=== PATIENT | male | born 1970 | race Caucasian/White ===

== ENCOUNTER 2018-08-05 12:39 | Emergency (ER) | payer OTHER ==
[2018-08-05 12:47] VITALS: BP 120/80; PULSE 74; RESP 15; TEMP 98.5; O2SAT 98
[2018-08-05] MEDS ORDERED: Tdap Vaccine 0.5 ml Vial (10-64 yrs) IM ONE ×2 (13:12→13:39)
--- NOTE | 2018-08-05 13:39 | ED PDOC ---
Upper Extremity Pain/Injury Time Seen by Provider: 08/05/18 12:48 Chief Complaint (Nursing): Finger,Hand,&Wrist Chief Complaint (Provider): Left Thumb Injury History Per: Patient, Medical File Clerk (his coworker at bedside is patient's preferred method of translation for irish) History/Exam Limitations: no limitations Onset/Duration Of Symptoms: Hrs (x1) Additional Complaint(s): 47 year old male presents to the ED with coworker for evaluation of a left thumb injury. 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 20 pounds) fell onto his left thumb. Patient reports he initially cleaned the wound with "a spray" and put on a band-aid. Patient presents for wound evaluation. Otherwise, denies numbness, tingling, loss of sensation, or taking any medicines prior to arrival. No other complaints. Patient reports mild localized pain. Tetanus not up to date Right hand dominant PMD: none provided Past Medical History Reviewed: Historical Data, Nursing Documentation, Vital Signs Vital Signs: Last Vital Signs Temp 98.5 F 08/05/18 12:46 Pulse 74 08/05/18 12:46 Resp 15 08/05/18 12:46 BP 120/80 08/05/18 12:46 Pulse Ox 98 08/05/18 12:46 - Medical History PMH: No Chronic Diseases - Surgical History Surgical History: No Surg Hx - Family History Family History: States: Unknown Family Hx - Social History Current smoker - smoking cessation education provided: No Alcohol: None Drugs: Denies - Home Medications Home Medications: Ambulatory Orders Medication Instructions Recorded DiphenhydrAMINE [Benadryl] 25 mg PO Q4H #20 cap 10/13/13 Famotidine [Pepcid] 1 tab PO BID #20 tab 10/13/13 Prednisone 2 tab PO DAILY #10 tab 10/13/13 Ibuprofen [Motrin Tab] 600 mg PO Q6 PRN #20 tab 08/05/18 - Allergies Allergies/Adverse Reactions: Allergies Allergy/AdvReac Type Severity Reaction Status Date / Time No Known Allergies Allergy Verified 10/13/13 12:25 Review of Systems ROS Statement: Except As Marked, All Systems Reviewed And Found Negative Musculoskeletal: Positive for: Other (left thumb pain) Neurological: Negative for: Numbness (or tingling) Physical Exam - Reviewed Nursing Documentation Reviewed: Yes Vital Signs Reviewed: Yes - Physical Exam Comments: GENERAL APPEARANCE: Patient is awake, alert, oriented x 3, in no acute distress. Resting comfortably. SKIN: Warm, dry; (-) cyanosis. NECK: Supple, FROM ENT: Mucus membranes moist. Airway patent, (-) stridor. CHEST AND RESPIRATORY: (-) rales, (-) rhonchi, (-) wheezes; breath sounds equal bilaterally. Respirations even and nonlabored. HEART AND CARDIOVASCULAR: (-) irregularity LEFT UPPER EXTREMITY: Hand: diffuse tenderness with mild edema to 1st digit with 0.5cm linear superficial horizontal laceration to the palmar proximal surface, (+) full ROM with pain on flexion of 1st digit. Capillary refill and sensation intact. (+) pulses. Remainder of LUE: non-tender with full ROM. NEURO AND PSYCH: Mental status as above. Gait: steady. Speech: clear. (-) facial asymmetry - ECG O2 Sat by Pulse Oximetry: 98 (RA) Pulse Ox Interpretation: Normal Medical Decision Making Medical Decision Making: Initial Impression: acute finger injury Time: 1310 Initial Plan: --Tetanus booster --Ibuprofen 600mg PO --Left hand XR 3 views --Patients wound soaked in saline / betadine solution before being closed using Dermaond 1405 XR reviewed, radiology report follows PROCEDURE: Left Hand Radiographs. HISTORY: r/o 1st digit fracture COMPARISON: None. TECHNIQUE: 3 views obtained. FINDINGS: BONES: Normal. No fracture. JOINTS: Normal. No osteoarthritic changes. SOFT TISSUES: Normal. OTHER FINDINGS: None. IMPRESSION: No acute findings related to/ accounting for the clinical presentation. 1410 Wound closure performed with Dermabond by Mickey BUCKNER. See procedure note. Lab/Diagnostic results d/w the patient in great detail. Diagnosis of finger contusion/laceration d/w the patient. Based on history, exam and diagnostic results, plan will be for outpatient follow up with hand/ortho. Patient instructed to follow-up with pmd / referral provided / the clinic in 1- 2 days without fail. Advised to take medication as prescribed. Return to the emergency room at any time for any new or worsening symptoms. Patient states he fully agrees with and understands discharge instructions. States that he agrees with the plan and disposition. Verbalized and repeated discharge instructions and plan. I have given the patient opportunity to ask any additional questions. Scribe Attestation: Documented by Jennifer Dove, acting as a scribe for Zahra Arevalo PA-C. Provider Scribe Attestation: All medical record entries made by the Scribe were at my direction and personally dictated by me. I have reviewed the chart and agree that the record accurately reflects my personal performance of the history, physical exam, medical decision making, and the department course for this patient. I have also personally directed, reviewed, and agree with the discharge instructions and disposition. Procedures - Laceration/Wound Repair left thumb Wound Length (cm): 0.5 Wound's Depth, Shape: superficial, linear Wound Explored: clean Irrigated w/ Saline (ccs): 250 Wound Debrided: minimal Wound Repaired With: Skin adhesive Layer Closure?: No Wound Complexity: Simple Progress: Patient tolerated procedure well. No complications. Educated on adhesive wound care. Disposition - Clinical Impression Clinical Impression: Finger contusion, Finger laceration - Patient ED Disposition Is Patient to be Admitted: No Counseled Patient/Family Regarding: Studies Performed, Diagnosis, Need For Followup, Rx Given - Disposition Referrals: Anai Gordon MD [Staff Provider] - [facility] [Outside] [facility] [Outside] Disposition: Routine/Home Disposition Time: 14:10 Condition: STABLE Additional Instructions: La atencin mdica de emergencia que recibi hoy se dirigi a liliana sntomas agudos. Si le recetaron algn medicamento, llnelo y tmelo segn las indicaciones. Los sntomas pueden tardar varios agustin en resolverse. Regrese al Departamento de Emergencias si liliana sntomas empeoran, no mejoran o si tiene otros problemas. Comunquese con grier mdico dentro de 2 agustin para brianna nueva evaluacin y anthony un seguimiento o llame a gisselle de los mdicos / clnicas a los que becerra sido referido y que figuran en el formulario de Informacin de visita al paciente que se incluye en grier paquete de eliazar. Lleve todos los documentos que recibi al momento del eliazar junto con los medicamentos que est tomando para grier visita de seguimiento. Nuestro tratamiento no puede reemplazar la atencin mdica continua por parte de un proveedor de atencin primaria (PCP) fuera del departamento de emergencias. Prescriptions: Ibuprofen [Motrin Tab] 600 mg PO Q6 PRN #20 tab PRN Reason: pain/inflammation Instructions: Laceration Repair With Glue (DC), Wound Care, Contusion (DC), Common Finger Injuries Forms: [facility] (Romanian) Print Language: PORTUGUESE - POA Present On Arrival: None
--- NOTE | 2018-08-05 14:09 | RAD ---
PROCEDURE: Left Hand Radiographs. HISTORY: r/o 1st digit fracture COMPARISON: None. TECHNIQUE: 3 views obtained. FINDINGS: BONES: Normal. No fracture. JOINTS: Normal. No osteoarthritic changes. SOFT TISSUES: Normal. OTHER FINDINGS: None. IMPRESSION: No acute findings related to/ accounting for the clinical presentation.
== END 2018-08-05 14:31 | disposition home or self-care (01) ==
LOC: H.ER 12:39
DX: S61.012A Laceration without foreign body of left thumb without damage to nail, initial encounter (principal); S60.012A Contusion of left thumb without damage to nail, initial encounter; W20.8XXA Other cause of strike by thrown, projected or falling object, initial encounter; Y99.0 Civilian activity done for income or pay; Z23 Encounter for immunization